=== PATIENT | male | born 1960 | race Caucasian/White ===

== ENCOUNTER 2019-06-07 02:25 | Inpatient (IN) | payer SELFPAY ==
[~2019-06-07] VITALS: Ht 165.1 cm; Wt 121.1 kg
[2019-06-07 02:58] LABS: MEAN CORPUSCULAR HEMOGLOBIN 27.4 pg (28.0-32.0); MEAN CORPUSCULAR VOLUME 83.6 fL (80.0-94.0); MEAN PLATELET VOLUME 6.3 fl (7.4-10.4); PLATELET 787 x1000/uL (130-400); RED BLOOD CELL COUNT 2.43 mill/uL (4.7-6.1); RED CELL DISTRIBUTION WIDTH 15.8 % (11.6-14.6)
[2019-06-07 03:00] LABS: HEMATOCRIT. 20.3 % (42.0-52.0); HEMOGLOBIN. 6.7 g/dL (14.0-18.0)
[2019-06-07 03:10] LABS: PLATELET ESTIMATE INCREASED
[2019-06-07 04:05] LABS: CLARITY URINE CLOUDY (CLEAR); COLOR URINE YELLOW (YELLOW); KETONES URINE NEGATIVE (NEGATIVE); LEUKOCYTE ESTERASE URINE 1+ (NEGATIVE); NITRITE URINE NEGATIVE (NEGATIVE); OCCULT BLOOD URINE 1+ (NEGATIVE); PROTEIN URINE 3+ (NEGATIVE); SPECIFIC GRAVITY URINE 1.015 (1.005-1.030); UROBILINOGEN URINE 0.2 E.U./dL (0.2-1.0)
[2019-06-07] MEDS ORDERED: NITROGLYCERIN 0.4MG TABLET SL SL PRN (07:15)
[2019-06-07] MEDS ORDERED: IPRATROPIUM/ALBUTEROL 0.5-3(2.5)MG/3ML NEB NEB PRN (07:15)
[2019-06-07] MEDS ORDERED: DOCUSATE SODIUM 100MG CAPSULE PO PRN (07:15)
[2019-06-07] MEDS ORDERED: ACETAMINOPHEN 325MG TABLET PO PRN (07:15)
[2019-06-07] MEDS ORDERED: TRAMADOL 50MG TABLET PO PRN (07:15)
[2019-06-07] MEDS ORDERED: ONDANSETRON HCL 4MG/2ML INJ IV PRN (07:15)
[2019-06-07] MEDS ORDERED: MAGNESIUM/ALUMINUM HYDROXIDE/SIMETHICONE 30ML UDC PO PRN (07:15)
[2019-06-07] MEDS ORDERED: NA PHOS,M-B/NA PHOS,DI-BA ENEMA 118ML PR PRN (07:15)
[2019-06-07] MEDS ORDERED: ZOLPIDEM TARTRATE 5MG TABLET PO PRN (07:15)
[2019-06-07] MEDS ORDERED: GUAIFENESIN 200MG/10ML SUGAR FREE UDC PO PRN (07:15)
[2019-06-07] MEDS ORDERED: LORAZEPAM 0.5MG TABLET PO PRN (07:15)
[2019-06-07 08:08] LABS: FOLIC ACID (FOLATE) SERUM 14.5 ng/mL (>5.38)
[2019-06-07 10:30] VITALS: BP 156/70
[2019-06-07] MEDS ORDERED: DEXTROSE 50% WATER 50ML SYRINGE IV PRN (11:15)
[2019-06-07] MEDS: BLOOD SUGAR DIAGNOSTIC STRIP TEST SCH ×3 (11:49→21:34)
[2019-06-07] MEDS: INSULIN LISPRO 100 UNITS/ML SUBCUT SCH ×3 (11:49→21:00)
[2019-06-07 11:58] VITALS: BP 147/64
[2019-06-07] MEDS: METOPROLOL TARTRATE 25MG TABLET PO SCH ×2 (12:36→21:39)
[2019-06-07] MEDS: MORPHINE SULFATE 2 MG/ML CPJ (NOT FOR IM USE) IV PRN (12:37)
[2019-06-07 13:11] LABS: HEMATOCRIT 24.1 % (42.0-52.0)
[2019-06-07] MEDS ORDERED: ENOXAPARIN 40MG/0.4ML SYR SUBCUT SCH (14:00)
[2019-06-07] MEDS ORDERED: FLUCONAZOLE 200MG/100ML PREMIX IV SCH (14:00)
[2019-06-07 14:37] LABS: *BENZODIAZEPINES SCREEN URINE NEGATIVE (NEGATIVE); *COCAINE SCREEN URINE NEGATIVE (NEGATIVE); METHADONE URINE SCREEN NEGATIVE (NEGATIVE); OPIATES URINE SCREEN PRESUMTIVE POSITIVE (NEGATIVE)
[2019-06-07 14:38] LABS: CANNABINOID URINE SCREEN NEGATIVE (NEGATIVE); PHENCYCLIDINE URINE SCREEN NEGATIVE (NEGATIVE)
[2019-06-07 14:39] LABS: *AMPHETAMINES SCREEN URINE NEGATIVE (NEGATIVE); *BARBITURATES SCREEN URINE NEGATIVE (NEGATIVE)
[2019-06-07] MEDS ORDERED: FLUCONAZOLE 200 MG/100ML BAG 100 ML IV SCH (15:00)
[2019-06-07 16:02] VITALS: BP 155/61
[2019-06-07 16:04] LABS: CREATINE KINASE 60 IU/L (39-308)
[2019-06-07 16:05] LABS: CREATINE KINASE MB FRACTION 1.2 ng/mL (0.5-3.6)
[2019-06-07] MEDS: CEFTRIAXONE 1 G PREMIX 50 ML IV SCH (16:24)
[2019-06-07] MEDS: ENOXAPARIN 30MG/0.3ML SYR SUBCUT SCH ×2 (16:26→22:48)
[2019-06-07 20:00] VITALS: BP 150/59
[2019-06-08] VITALS: BP 160/64
[2019-06-08 01:48] LABS: CREATINE KINASE 49 IU/L (39-308)
[2019-06-08 01:49] LABS: CREATINE KINASE MB FRACTION < 1.0 ng/mL (0.5-3.6)
[2019-06-08 04:00] VITALS: BP 174/71
[2019-06-08] MEDS: INSULIN LISPRO 100 UNITS/ML SUBCUT SCH ×4 (06:37→21:00)
[2019-06-08] MEDS: BLOOD SUGAR DIAGNOSTIC STRIP TEST SCH ×4 (06:38→21:42)
[2019-06-08 07:13] LABS: BASOPHILS % 0.2 % (0.0-2.0); EOSINOPHILS % 3.1 % (0.0-5.0); HEMATOCRIT. 24.7 % (42.0-52.0); HEMOGLOBIN. 8.4 g/dL (14.0-18.0); LYMPHOCYTES % 8.6 % (20.0-50.0); MEAN CORPUSCULAR HEMOGLOBIN 28.3 pg (28.0-32.0); MEAN CORPUSCULAR VOLUME 82.8 fL (80.0-94.0); MEAN PLATELET VOLUME 6.4 fl (7.4-10.4); NEUTROPHILS % 81.1 % (40.0-76.0); PLATELET 872 x1000/uL (130-400); RED BLOOD CELL COUNT 2.99 mill/uL (4.7-6.1); RED CELL DISTRIBUTION WIDTH 15.8 % (11.6-14.6)
[2019-06-08 07:45] VITALS: BP 167/50
[2019-06-08 07:49] LABS: CHLORIDE 107 mEq/L (98-107)
[2019-06-08] MEDS: ENOXAPARIN 30MG/0.3ML SYR SUBCUT SCH ×2 (08:14→21:42)
[2019-06-08] MEDS: METOPROLOL TARTRATE 25MG TABLET PO SCH ×2 (08:14→21:42)
[2019-06-08] MEDS: FLUCONAZOLE 100MG TABLET PO SCH (08:14)
[2019-06-08] MEDS: CLONIDINE 0.1MG TABLET PO PRN (08:21)
[2019-06-08] MEDS: MORPHINE SULFATE 2 MG/ML CPJ (NOT FOR IM USE) IV PRN (10:08)
[2019-06-08 12:00] VITALS: BP 149/56
[2019-06-08] MEDS: CEFTRIAXONE 1 G PREMIX 50 ML IV SCH (13:37)
[2019-06-08 16:39] VITALS: BP 161/61
[2019-06-08] MEDS: FERROUS SULFATE 300MG/5ML UDC PO SCH (16:41)
[2019-06-08 20:00] VITALS: BP 174/73
[2019-06-09] VITALS: BP 170/66
[2019-06-09] MEDS: CLONIDINE 0.1MG TABLET PO PRN (01:00)
[2019-06-09 04:00] VITALS: BP 183/69
[2019-06-09] MEDS: MORPHINE SULFATE 2 MG/ML CPJ (NOT FOR IM USE) IV PRN (06:10)
[2019-06-09] MEDS: INSULIN LISPRO 100 UNITS/ML SUBCUT SCH ×2 (06:15→11:47)
[2019-06-09] MEDS: BLOOD SUGAR DIAGNOSTIC STRIP TEST SCH ×2 (06:15→11:47)
[2019-06-09] MEDS: FERROUS SULFATE 300MG/5ML UDC PO SCH (06:29)
[2019-06-09 08:47] VITALS: BP 166/66
[2019-06-09] MEDS: ENOXAPARIN 30MG/0.3ML SYR SUBCUT SCH (09:00)
[2019-06-09] MEDS ORDERED: AMLODIPINE 10MG TABLET PO SCH (09:30)
[2019-06-09] MEDS: FLUCONAZOLE 100MG TABLET PO SCH (10:24)
[2019-06-09] MEDS: METOPROLOL TARTRATE 25MG TABLET PO SCH (10:25)
[2019-06-09 12:00] VITALS: BP 171/65
[2019-06-09 12:18] VITALS: BP 171/65
== END 2019-06-09 13:30 | disposition home or self-care (01) | DRG 501 ==
LOC: ER 02:25 → 8WST 05:18 → ENRESERV 07:19
PROVIDERS: ADMIT Internal Medicine; ATTEND Internal Medicine
DX: B37.49 Other urogenital candidiasis (principal); N17.0 Acute kidney failure with tubular necrosis; D62 Acute posthemorrhagic anemia; D63.8 Anemia in other chronic diseases classified elsewhere; E11.9 Type 2 diabetes mellitus without complications; I10 Essential (primary) hypertension; R33.9 Retention of urine, unspecified; Z89.612 Acquired absence of left leg above knee; Z79.4 Long term (current) use of insulin
CPT/HCPCS: 36415; 36430; 51702; 80048; 80061; 80305; 81003; 82550; 82553; 82607; 82746; 82962; 83036; 83540; 83550; 84134; 84484; 85014; 85018; 86850; 86900; 86920; 87106; 93970; 99285; A6261; J0696; J1450; J1650; J2270; J7040; P9016